=== PATIENT | female | born 1965 ===

== ENCOUNTER 2021-03-02 22:30 | Inpatient (IN) | payer MEDICAID, OTHER ==
[~2021-03-02] VITALS: Ht 167.6 cm; Wt 89.3 kg
[2021-03-02] MEDS ORDERED: PLEASE ENTER HEIGHT AND WEIGHT MC SCH (23:45)
[2021-03-03] MEDS ORDERED: POLYETHYLENE GLYCOL 17 GM PACKET PO PRN
[2021-03-03] MEDS ORDERED: BISACODYL 10 MG SUPP PR PRN
[2021-03-03] MEDS ORDERED: DOCUSATE 100 MG CAPSULE PO PRN
[2021-03-03] MEDS ORDERED: ACETAMINOPHEN 325 MG TABLET PO PRN
[2021-03-03] MEDS ORDERED: ONDANSETRON ODT 4 MG PO PRN
[2021-03-03 00:07] VITALS: BP 172/105
[2021-03-03] MEDS: TRAZODONE 50MG TABLET PO PRN ×2 (00:19→20:56)
[2021-03-03] MEDS ORDERED: LISINOPRIL 20 MG TABLET PO ONE (00:30)
[2021-03-03 00:53] LABS: MICROSCOPIC INDICATED
[2021-03-03 03:05] VITALS: BP 158/103
[2021-03-03 04:12] VITALS: BP 118/81
[2021-03-03 05:23] LABS: BASOPHILS % (AUTO) 3 % (0-1); EOSINOPHILS % (AUTO) 2 % (1-7); LYMPHOCYTES % (AUTO) 39 % (22-44); MEAN CORPUSCULAR HEMOGLOBIN 32.2 pg (27.0-34.8); MEAN PLATELET VOLUME 8.5 fL (7.4-10.4); MONOCYTES % (AUTO) 7 % (2-9); NEUTROPHILS % (AUTO) 49 % (42-75); PLATELET COUNT 162 x10^3/uL (130-400); RED BLOOD COUNT 4.65 x10^6/uL (3.82-5.3)
[2021-03-03 05:32] LABS: MD NO
[2021-03-03 05:39] LABS: CHLORIDE 107 mmol/L (98-107)
[2021-03-03 06:08] LABS: ALANINE AMINOTRANSFERASE 79 U/L (12-78); ALBUMIN 3.3 g/dL (3.4-5.0); ALKALINE PHOSPHATASE 76 U/L (45-117); ANION GAP 7 mmol/L (5-15); CALCIUM 8.8 mg/dL (8.5-10.1); CHOL/HDL RATIO 7.4; CHOLESTEROL, TOTAL 214 mg/dL (140-239); CREATININE 0.88 mg/dL (0.55-1.02); FREE T4 (FREE THYROXINE) 0.75 ng/dL (0.76-1.46); HDL CHOL % 14 % (28-40); HDL CHOLESTEROL (DIRECT) 29 mg/dL (40-60); LDL CHOLESTEROL,CALCULATED 110 mg/dL (54-169); LDL/HDL RATIO 3.8 (0.5-3.0); TOTAL PROTEIN 6.2 g/dL (6.4-8.2); TRIGLYCERIDES 377 mg/dL (50-200); VLDL CHOLESTEROL 75 mg/dL (0-25)
[2021-03-03 07:55] VITALS: BP 127/86
[2021-03-03] MEDS: NICOTINE 14MG/24 HR PATCH.TD24 TD SCH ×2 (10:11→10:13)
[2021-03-03] MEDS ORDERED: PHEN37.53 PO (12:19)
[2021-03-03] MEDS ORDERED: SERT100T32 PO (12:19)
[2021-03-03] MEDS ORDERED: ARIP10TA33 PO (12:19)
[2021-03-03] MEDS ORDERED: GABA300C PO (12:19)
[2021-03-03] MEDS ORDERED: TRAZ-175 PO (12:19)
[2021-03-03] MEDS ORDERED: LISI-170 PO (12:19)
[2021-03-03] MEDS ORDERED: BUPR150T22 PO (12:19)
[2021-03-03] MEDS ORDERED: MAGN400T9 PO (12:19)
[2021-03-03] MEDS ORDERED: AMOX1TAB64 PO (12:19)
[2021-03-03 19:36] VITALS: BP 129/87
[2021-03-04 08:15] VITALS: BP 130/89
[2021-03-04] MEDS: BUPROPION SR 150 MG TABLET PO SCH ×2 (08:26→12:10)
[2021-03-04] MEDS: NICOTINE 14MG/24 HR PATCH.TD24 TD SCH (08:26)
[2021-03-04] MEDS: LISINOPRIL 20 MG TABLET PO SCH (08:27)
[2021-03-04] MEDS: ARIPIPRAZOLE 10 MG TABLET PO SCH (09:22)
[2021-03-04] MEDS: DULOXETINE 30 MG CAPSULE.DR PO SCH (09:22)
[2021-03-04 19:27] VITALS: BP 145/92
[2021-03-04] MEDS: ATORVASTATIN 40 MG TABLET PO SCH (20:18)
[2021-03-04] MEDS: TRAZODONE 50MG TABLET PO PRN (20:18)
[2021-03-05 08:05] VITALS: BP 138/96
[2021-03-05] MEDS: LISINOPRIL 20 MG TABLET PO SCH (08:55)
[2021-03-05] MEDS: NICOTINE 14MG/24 HR PATCH.TD24 TD SCH (08:56)
[2021-03-05] MEDS: BUPROPION SR 150 MG TABLET PO SCH ×2 (08:56→11:54)
[2021-03-05] MEDS: ARIPIPRAZOLE 10 MG TABLET PO SCH (08:56)
[2021-03-05] MEDS: DULOXETINE 30 MG CAPSULE.DR PO SCH (10:03)
[2021-03-05 19:30] VITALS: BP 148/99
[2021-03-05] MEDS: ATORVASTATIN 40 MG TABLET PO SCH (20:17)
[2021-03-05] MEDS: TRAZODONE 50MG TABLET PO PRN (20:23)
[2021-03-06 07:27] VITALS: BP 116/81
[2021-03-06] MEDS: BUPROPION SR 150 MG TABLET PO SCH ×2 (09:09→12:30)
[2021-03-06] MEDS: ARIPIPRAZOLE 10 MG TABLET PO SCH (09:09)
[2021-03-06] MEDS: DULOXETINE 30 MG CAPSULE.DR PO SCH (09:10)
[2021-03-06] MEDS: NICOTINE 14MG/24 HR PATCH.TD24 TD SCH (09:10)
[2021-03-06] MEDS: LISINOPRIL 20 MG TABLET PO SCH (09:10)
[2021-03-06 19:14] VITALS: BP 131/85
[2021-03-06] MEDS: TRAZODONE 50MG TABLET PO PRN (20:16)
[2021-03-06] MEDS: ATORVASTATIN 40 MG TABLET PO SCH (20:16)
[2021-03-07 07:37] VITALS: BP 118/83
[2021-03-07] MEDS: LISINOPRIL 20 MG TABLET PO SCH (07:44)
[2021-03-07] MEDS: DULOXETINE 30 MG CAPSULE.DR PO SCH (07:44)
[2021-03-07] MEDS: BUPROPION SR 150 MG TABLET PO SCH ×2 (07:44→11:52)
[2021-03-07] MEDS: NICOTINE 14MG/24 HR PATCH.TD24 TD SCH (07:47)
[2021-03-07] MEDS: ARIPIPRAZOLE 10 MG TABLET PO SCH (07:52)
[2021-03-07] MEDS ORDERED: DULO30CA2 PO (16:28)
[2021-03-07] MEDS ORDERED: NICO-486 TD (16:28)
[2021-03-07] MEDS ORDERED: BUPR150T73 PO (16:28)
[2021-03-07 19:31] VITALS: BP 136/92
[2021-03-07] MEDS: ATORVASTATIN 40 MG TABLET PO SCH (20:38)
[2021-03-07] MEDS: TRAZODONE 50MG TABLET PO PRN (20:39)
[2021-03-08 07:19] VITALS: BP 120/85
[2021-03-08] MEDS: BUPROPION SR 150 MG TABLET PO SCH ×2 (08:35→12:00)
[2021-03-08] MEDS: ARIPIPRAZOLE 10 MG TABLET PO SCH (08:35)
[2021-03-08] MEDS: DULOXETINE 30 MG CAPSULE.DR PO SCH (08:35)
[2021-03-08] MEDS: NICOTINE 14MG/24 HR PATCH.TD24 TD SCH (08:36)
[2021-03-08] MEDS: LISINOPRIL 20 MG TABLET PO SCH (08:39)
== END 2021-03-08 13:44 | disposition home or self-care (01) | DRG 751 ==
LOC: 3E 23:30
PROVIDERS: ADMIT Psychiatry & Neurology Psychosomatic Medicine; ATTEND Psychiatry & Neurology Psychosomatic Medicine
DX: F33.2 Major depressive disorder, recurrent severe without psychotic features (principal); R45.851 Suicidal ideations; E78.5 Hyperlipidemia, unspecified; F17.200 Nicotine dependence, unspecified, uncomplicated; G43.909 Migraine, unspecified, not intractable, without status migrainosus; G89.29 Other chronic pain; I10 Essential (primary) hypertension; Z79.899 Other long term (current) drug therapy
CPT/HCPCS: 36415; 71045; 80053; 80061; 81001; 82607; 84439; 84443; 84703; 85025; 87086